=== PATIENT | male | born 1975 | race Caucasian/White ===

== ENCOUNTER 2017-10-28 14:24 | Emergency (ER) | payer BC ==
[~2017-10-28] VITALS: Ht 167.6 cm; Wt 81.6 kg
[~2017-10-28 14:24] MED LIST: ACET500C4 PO; AGM875T PO; AMOX500C2; BISA5TAB8 PO; CYCL10TA9 PO; DAPS100T3 PO; DOCU100T7 PO; DOXY100C2 PO; HYDR-3714 PO; HYDR-3729 PO; KETO10TA PO; LACT1CAP39 PO; LANS30CA PO; LRT10T PO; MAGN800O PO; METR500T PO; NF-ESOM40C PO; SULF1TAB38 PO; TRAM50TA2; VICODIN PO
--- NOTE | 2017-10-28 15:22 | Diagnostic Imaging Report ---
Three views of the left ankle. INDICATION: Fall. FINDINGS: No fracture, dislocation, or radiopaque foreign body is seen. The ankle mortise is normal in configuration. IMPRESSION: Unremarkable exam. Dictated by: Dictated on workstation # [id number]
--- NOTE | 2017-10-28 15:23 | Diagnostic Imaging Report ---
EXAMINATION: Three views of the left foot. INDICATION: Fall. FINDINGS: No fracture or dislocation is seen. No radiopaque foreign body. Osseous alignment appears normal. IMPRESSION: Unremarkable exam. Dictated by: Dictated on workstation # [id number]
--- NOTE | 2017-10-28 15:24 | ED Lower Extremity ---
General Chief Complaint: Lower Extremity Stated Complaint: HURT L LEG OR ANKLE Nursing Triage Note: Pt reports he fell out of the back of his pickup truck, hurting his L foot/ankle. Pt denies any further injuries from fall at this time. Nursing Sepsis Screen: No Definite Risk Source: patient Exam Limitations: no limitations History of Present Illness Time seen by provider: 15:22 Initial Comments To ER with left lateral ankle pain after falling out of the back of his truck landing on the ankle. He is not sure whether he inverted or everted the ankle. Onset: just prior to arrival Severity: moderate Pain/Injury Location: left ankle Method of Injury: fell Modifying Factors: Worse With Movement Allergies and Home Medications Allergies Coded Allergies: fluconazole (Unverified Allergy, Unknown, HIVES, 07/11/14) Home Medications Amoxicillin 500 Mg Capsule, #30 (Reported) Cyclobenzaprine HCl 10 Mg Tablet, 10 MG PO Q8H, #15 Prescribed by: DEONTE MONROY on 04/13/16 1028 Ketorolac Tromethamine 10 Mg Tablet, 10 MG PO Q6H, #20 Prescribed by: DEONTE MONROY on 04/13/16 1028 Tramadol HCl 50 Mg Tablet, #20 (Reported) Constitutional: see HPI EENTM: see HPI Respiratory: no symptoms reported Cardiovascular: no symptoms reported Genitourinary: no symptoms reported Musculoskeletal: see HPI Skin: no symptoms reported Psychiatric/Neurological: No Symptoms Reported Past Kqiufkk-Hzrfcg-Bxtovq Hx Patient Social History Recent Foreign Travel: No Contact w/Someone Who Travel: No Recent Infectious Disease Expo: No Immunizations Up To Date Tetanus Booster (TDap): Less than 5yrs PED Vaccines UTD: No Date of Influenza Vaccine: Oct 16, 2014 Surgeries Surgeries: Abdominal, Bowel Surgery, Gallbladder Reproductive System Hx Reproductive Disorders: No Sexually Transmitted Disease: No HIV/AIDS: No Gastrointestinal Gastrointestinal Disorders: Diverticulosis Blood Transfusions Adverse Reaction to a Blood Tr: No Family Medical History Family Medial History: Arthritis Cataracts Completed stroke Deafness or hearing loss Dementia Gastroenteritis Hypercholesterolemia Hypertension Osteoporosis Respiratory disorder Tuberculosis No Family History of: AIDS Abdominal aortic aneurysm [place]'s disease Alcoholism Alzheimer's disease Aphasia Asthma Cancer of mouth Cardiovascular disease Colon cancer Congenital disease Congenital heart disease Coronary thrombosis Cystic fibrosis Diabetes mellitus Drug abuse Dysphasia Fibrocystic disease of breast Glaucoma Headache disorder Infertility Kidney disease Myocardial infarction Neoplasm Not obtainable due to adoption Parkinson's disease Prostate cancer Psychosocial problem Seizure disorder Severe allergy Thyroid disease Visual disorder Physical Exam Vital Signs Vital Sign - Last 12Hours 10/28/17 14:38 Temp 97.7 Pulse 89 Resp 18 B/P (MAP) 152/79 (103) Pulse Ox 100 O2 Delivery Room Air Capillary Refill : Less Than 3 Seconds General Appearance: WD/WN, no apparent distress HEENT: PERRL/EOMI, normal ENT inspection Neck: non-tender, full range of motion Respiratory: no respiratory distress, no accessory muscle use Hips: bilateral hip non-tender, bilateral hip normal inspection, bilateral hip normal range of motion Legs: bilateral leg non-tender, bilateral leg normal inspection, bilateral leg normal range of motion Knees: bilateral knee non-tender, bilateral knee normal inspection, bilateral knee normal range of motion Ankles: left ankle pain, left ankle soft tissue tenderness, left ankle other ( no swelling or deformity) Feet: bilateral foot non-tender, bilateral foot normal inspection, bilateral foot normal range of motion Neurologic/Psychiatric: alert, normal mood/affect, oriented x 3 Skin: normal color, warm/dry Progress/Results/Core Measures Results/Orders My Orders Orders - TESSIE LAZO APRN Foot, Left, 3 Views (10/28/17 14:46) Ankle, Left, 3 Views (10/28/17 14:46) Vital Signs/I&O Vital Sign - Last 12Hours 10/28/17 14:38 Temp 97.7 Pulse 89 Resp 18 B/P (MAP) 152/79 (103) Pulse Ox 100 O2 Delivery Room Air Blood Pressure Mean: 103 Departure Impression Impression: Primary Impression: Ankle sprain Disposition: 01 HOME, SELF-CARE Condition: Stable Departure-Patient Inst. Decision time for Depature: 15:23 Referrals: DIANDRA CHO MD (PCP/Family) Primary Care Physician Patient Instructions: Ankle Sprain (DC) Add. Discharge Instructions: 1. Elevate the ankle as much as she can for the rest of today. This will help with swelling. Also apply ice pack for about 30 minutes to an hour at a time couple of times a day for the next few days to help with swelling and pain. Tylenol and Motrin for pain. Crutches as needed for pain with walking. When you're able to bear weight without significant pain that he may stop using the crutches. All discharge instructions reviewed with patient and/or family. Voiced understanding. TESSIE LAZO APRN Oct 28, 2017 15:24
[2017-10-28 15:45] VITALS: BP 152/79
--- OUTSIDE RECORDS SUMMARY | 2017-10-29 09:48 | XMS REPORT | Continuity of Care Document ---
Author Author [facility] Organization [facility] Address Unknown Phone Unavailable Allergies Active Description Code Type Severity Reaction Onset Reported/Identified Relationship to Patient Clinical Status Yes fluconazole [id number] Drug Allergy Unknown HIVES 07/11/2014 Medications There is no data. Problems Date Dx Coded Attending Type Code Diagnosis Diagnosed By 07/14/2014 ENOC DECKER MD Ot 574.10 CHOLELITH W CHOLECYS NEC 07/31/2014 ENOC DECKER MD Ot 038.9 SEPTICEMIA NOS 07/31/2014 ENOC DECKER MD Ot 041.04 STREPTOCOCCUS INFECTION NOS, GROUP D (EN 07/31/2014 ENOC DECKER MD Ot 041.82 BACTEROIDES FRAGILIS 07/31/2014 ENOC DECKER MD Ot 276.1 HYPOSMOLALITY 07/31/2014 ENOC DECKER MD Ot 276.8 HYPOPOTASSEMIA 07/31/2014 ENOC DECKER MD Ot 285.9 ANEMIA NOS 07/31/2014 ENOC DECKER MD Ot 305.1 TOBACCO USE DISORDER 07/31/2014 ENOC DECKER MD Ot 560.1 PARALYTIC ILEUS 07/31/2014 ENOC DECKER MD Ot 562.11 DIVERTICULITIS COLON (W/O MENT OF HEMORR 07/31/2014 ENOC DECKER MD Ot 567.22 PERITONEAL ABSCESS 07/31/2014 ENOC DECKER MD Ot 569.5 INTESTINAL ABSCESS 07/31/2014 ENOC DECKER MD Ot 584.9 ACUTE RENAL FAILURE, UNSPECIFIED 07/31/2014 ENOC DECKER MD Ot 729.5 PAIN IN LIMB 07/31/2014 ENOC DECKER MD Ot 782.3 EDEMA 07/31/2014 ENOC DECKER MD Ot 782.4 JAUNDICE NOS 07/31/2014 ENOC DECKER MD Ot 786.09 RESPIRATORY ABNORM NEC 07/31/2014 ENOC DECKER MD Ot 787.7 ABNORMAL FECES 07/31/2014 JERONIMO FRANCO, ENOC Zhang Ot 788.20 RETENTION OF URINE NOS 07/31/2014 JERONIMO FRANCO, ENOC Zhang Ot 995.92 SEVERE SEPSIS 10/23/2014 ENOC DECKER MD Ot 562.10 DIVERTICULOSIS COLON (W/O MENT OF HEMORR 11/16/2014 ENOC DECKER MD Ot 562.10 11/16/2014 ENOC DECKER MD Ot V72.63 11/16/2014 ENOC DECKER MD Ot V74.8 11/23/2014 ENOC DECKER MD Ot 562.11 11/23/2014 ENOC DECKER MD Ot V15.82 11/23/2014 ENOC DECKER MD Ot 562.11 11/23/2014 ENOC DECKER MD Ot V15.82 11/25/2014 ENOC DECKER MD Ot 562.11 DIVERTICULITIS COLON (W/O MENT OF HEMORR 11/25/2014 ENOC DECKER MD Ot 788.20 RETENTION OF URINE NOS 11/25/2014 ENOC DECKER MD Ot V15.82 HISTORY OF TOBACCO USE 12/07/2014 ENOC DECKER MD Ot 562.10 12/07/2014 ENOC DECKER MD Ot V72.63 12/07/2014 ENOC DECKER MD Ot V74.8 08/29/2015 AMBROCIO VANG CHIEF OF ANESTHESIOLOGY Ot M53.82 09/05/2015 AMBROCIO VANG CHIEF OF ANESTHESIOLOGY Ot M53.82 04/13/2016 DEONTE MONROY DO Ot F17.210 NICOTINE DEPENDENCE, CIGARETTES, UNCOMPL 04/13/2016 DEONTE MONROY DO Ot M79.602 PAIN IN LEFT ARM 04/13/2016 DEONTE MONROY DO, Ot S46.812A STRAIN OF MUSC/FASC/TEND AT SHLDR/UP ARM 04/13/2016 DEONTE MONROY DO, Ot X58.XXXA EXPOSURE TO OTHER SPECIFIED FACTORS, INI 04/13/2016 DEONTE MONROY DO, Ot Y92.[address] IN [facility] NON-INSTITUT (PRIVATE 04/13/2016 DEONTE MONROY DO, Ot Y99.8 OTHER EXTERNAL CAUSE STATUS 04/13/2016 MIKEL FRANCO, MOHAN Zhang Ot 574.20 CHOLELITHIASIS NOS 04/13/2016 JERONIMO FRANCO, ENOC Zhang Ot 574.20 CHOLELITHIASIS NOS 04/13/2016 ENOC DECKER MD Ot V72.63 PRE-PROCEDURAL LABORATORY EXAMINATION 04/13/2016 ENOC DECKER MD Ot V74.8 SCREEN-BACTERIAL DIS NEC 04/13/2016 ENOC DECKER MD Ot V72.84 EXAM PRE-OPERATIVE NOS 04/13/2016 ENOC DECKER MD Ot 562.10 DIVERTICULOSIS COLON (W/O MENT OF HEMORR 04/13/2016 ENOC DECKER MD Ot V72.63 PRE-PROCEDURAL LABORATORY EXAMINATION 04/13/2016 ENOC DECKER MD Ot V74.8 SCREEN-BACTERIAL DIS NEC 04/13/2016 AMBROCIO VANG CHIEF OF ANESTHESIOLOGY Ot M53.82 OTHER SPECIFIED DORSOPATHIES, CERVICAL R 04/16/2016 DEONTE MONROY DO Ot F17.210 NICOTINE DEPENDENCE, CIGARETTES, UNCOMPL 04/16/2016 DEONTE MONROY DO Ot M79.602 PAIN IN LEFT ARM 04/16/2016 DEONTE MONROY DO Ot S46.812A STRAIN OF MUSC/FASC/TEND AT SHLDR/UP ARM 04/16/2016 DEONTE MONROY DO Ot X58.XXXA EXPOSURE TO OTHER SPECIFIED FACTORS, INI 04/16/2016 DEOTNE MONROY DO Ot Y92.[address] IN [facility] NON-INSTITUT (PRIVATE 04/16/2016 DEONTE MONROY DO Ot Y99.8 OTHER EXTERNAL CAUSE STATUS 04/17/2016 MIKEL FRANCO, MOHAN Zhang Ot 574.20 CHOLELITHIASIS NOS 04/17/2016 JERONIMO FRANCO, ENOC Zhang Ot 574.20 CHOLELITHIASIS NOS 04/17/2016 ENOC DECKER MD Ot V72.63 PRE-PROCEDURAL LABORATORY EXAMINATION 04/17/2016 ENOC DECKER MD Ot V74.8 SCREEN-BACTERIAL DIS NEC 04/17/2016 ENOC DECKER MD Ot V72.84 EXAM PRE-OPERATIVE NOS 04/17/2016 ENOC DECKER MD Ot 562.10 DIVERTICULOSIS COLON (W/O MENT OF HEMORR 04/17/2016 ENOC DECKER MD Ot V72.63 PRE-PROCEDURAL LABORATORY EXAMINATION 04/17/2016 ENOC DECKER MD Ot V74.8 SCREEN-BACTERIAL DIS NEC 04/17/2016 ALDENSTANLEYAMBROCIO NUÑEZ SONIYA Ot M53.82 OTHER SPECIFIED DORSOPATHIES, CERVICAL R Procedures Code Description Performed By Performed On 96.07 07/18/2014 99.15 07/19/2014 54.91 07/24/2014 17.36 11/22/2014 17.42 11/22/2014 38.93 11/22/2014 Results There is no data. Encounters ACCT No. Visit Date/Time Discharge Status Pt. Type Provider Facility Loc./Unit Complaint [id number] 10/28/2017 14:27:00 10/28/2017 15:45:00 DIS Emergency TESSIE LAZO APRN [facility] ER HURT L LEG OR ANKLE [id number] 04/13/2016 09:31:00 04/13/2016 10:52:00 DIS Emergency DEONTE MONROY DO [facility] ER [id number] 08/20/2015 14:26:00 08/20/2015 23:59:59 CLS Outpatient AMBROCIO VANG APRN [facility] RAD [id number] 11/22/2014 08:55:00 11/25/2014 10:55:00 DIS Inpatient ENOC DECKER MD [facility] SURGICAL [id number] 11/14/2014 07:55:00 11/14/2014 23:59:59 CLS Outpatient ENOC DECKER MD [facility] PREOP [id number] 10/23/2014 12:01:00 10/23/2014 15:00:00 DIS Outpatient ENOC DECKER MD [facility] [id number] 10/18/2014 06:10:00 10/18/2014 23:59:59 CLS Outpatient ENOC DECKER MD [facility] PREOP [id number] 07/16/2014 18:05:00 07/31/2014 15:30:00 DIS Inpatient ENOC DECKER MD [facility] SURGICAL [id number] 07/14/2014 08:28:00 07/14/2014 15:55:00 DIS Outpatient ENOC DECKER MD [facility] [id number] 07/11/2014 11:56:00 07/11/2014 23:59:59 CLS Outpatient ENOC DECKER MD [facility] PREOP [id number] 07/05/2014 06:51:00 07/05/2014 23:59:59 CLS Outpatient MOHAN MORIN MD [facility] RAD
== END 2017-10-28 15:45 | disposition home or self-care (01) ==
LOC: EDUNIT# 14:24 → ER 14:27
DX: S93.402A Sprain of unspecified ligament of left ankle, initial encounter (principal); Z82.49 Family history of ischemic heart disease and other diseases of the circulatory system; W17.89XA Other fall from one level to another, initial encounter
CPT/HCPCS: 73610; 73630; 99283

== ENCOUNTER 2017-12-14 12:32 | Emergency (ER) | payer BC ==
[~2017-12-14] VITALS: Ht 167.6 cm; Wt 86.2 kg
[2017-12-14 13:30] LABS: BASOPHILS % (AUTO) 0 % (0-10); EOSINOPHILS # (AUTO) 0.1 10^3/uL (0.0-0.3); EOSINOPHILS % (AUTO) 1 % (0-10); HEMATOCRIT 45 % (40-54); HEMOGLOBIN 16.2 G/DL (13.3-17.7); LYMPHOCYTES # (AUTO) 1.4 X 10^3 (1.0-4.0); LYMPHOCYTES % (AUTO) 17 % (12-44); MEAN CORPUSCULAR HEMOGLOBIN 33 PG (25-34); MEAN CORPUSCULAR HGB CONC 36 G/DL (32-36); MEAN CORPUSCULAR VOLUME 92 FL (80-99); MEAN PLATELET VOLUME 8.9 FL (7.4-10.4); MONOCYTES # (AUTO) 0.6 X 10^3 (0.0-1.0); MONOCYTES % (AUTO) 7 % (0-12); NEUTROPHILS % (AUTO) 75 % (42-75); PLATELET COUNT 234 10^3/uL (130-400); RED BLOOD COUNT 4.96 10^6/uL (4.35-5.85); RED CELL DISTRIBUTION WIDTH 12.8 % (10.0-14.5)
[2017-12-14 13:48] LABS: INR 0.9 (0.8-1.4); PROTHROMBIN TIME PATIENT 12.3 SEC (12.2-14.7)
[2017-12-14 13:49] LABS: PARTIAL THROMBOPLASTIN TIME 27 SEC (24-35)
[2017-12-14 13:51] LABS: FIBRIN DEGRADATION PRODUCTS < 0.27 UG/ML (0.00-0.49)
[2017-12-14 13:54] LABS: ALANINE AMINOTRANSFERASE 27 U/L (0-55); ALBUMIN 4.1 GM/DL (3.2-4.5); ALKALINE PHOSPHATASE 59 U/L (40-136); BILIRUBIN,TOTAL 0.4 MG/DL (0.1-1.0); BUN/CREATININE RATIO 17; CALCIUM 9.3 MG/DL (8.5-10.1); CARBON DIOXIDE 21 MMOL/L (21-32); CHLORIDE 104 MMOL/L (98-107); CREATININE SERUM 0.83 MG/DL (0.60-1.30); GFR ESTIMATED > 60; GLUCOSE 139 MG/DL (70-105); MAGNESIUM 2.2 MG/DL (1.8-2.4); POTASSIUM 3.7 MMOL/L (3.6-5.0); SODIUM 135 MMOL/L (135-145); TOTAL PROTEIN 6.8 GM/DL (6.4-8.2)
[2017-12-14] MEDS ORDERED: ENOXAPARIN 100 MG/1 ML (LOVENOX) SYR SC ONE (14:15)
--- NOTE | 2017-12-14 14:16 | Diagnostic Imaging Report ---
INDICATION: Left leg pain and swelling. Left leg venous Doppler study performed in routine fashion with color flow Doppler and waveform analysis. The left common femoral vein and SFV and popliteal vein were patent and compressible. The visualized portions of the posterior tibial vein and peroneal vein are patent. The origin of the greater saphenous vein was patent. The rest the greater saphenous vein is not well seen. There is thrombus in the lesser saphenous vein in the calf. IMPRESSION: There is superficial venous thrombus in the lesser saphenous vein in the calf. The deep system does not show evidence of thrombus. Dictated by: Dictated on workstation # [id number]
[2017-12-14] MEDS ORDERED: APIX5TAB PO (14:17)
[2017-12-14] MEDS ORDERED: PANT40TA2 PO (14:17)
--- NOTE | 2017-12-14 14:17 | ED Lower Extremity ---
General Chief Complaint: Lower Extremity Stated Complaint: L LEG SWELLING/PAIN Nursing Triage Note: PT CO OF L LEG SWELLING FROM [facility] HAD SPRAINED ANKLE APPROX 7 WEEKS AGO Nursing Sepsis Screen: No Definite Risk Source: patient History of Present Illness Date Seen by Provider: Dec 14, 2017 Time Seen by Provider: 13:00 Initial Comments C/O LEFT LEG PAIN AND SWELLING SINCE THURSDAY SPRAINED LEFT ANKLE 10/28/18, AFTER FALLING OFF THE TAILGATE OF A [employer] HAS CONTINUED TO HAVE PROBLEMS WITH PAIN AND SWELLING TO ANKLE AND IS TO HAVE MRI THIS WEEK. HAS NOT BEEN REFERRED TO ORTHOPEDICS YET. HAS BEEN SEEN BY ROSEANNE POPE AT DR. CHO'S OFFICE PT STATES ON 12/12/17, HE BEGAN OT HAVE BAD CRAMPING IN LEFT CALF MUSCLE --NOT ASSOCIATED WITH ANY PARTICULAR ACTIVITY TO CAUSE MUSCLE PAIN LATER THAT DAY, HE BEGAN TO HAVE SWELLING OF HIS LEFT LOWER LEG CONTINUES TO HAVE PAIN IN LEFT CALF NO PARESTHESIAS OR MOTOR DEFICITS NO CHEST PAIN, SHORTNESS OF BREATH, PALPITATIONS, DIZZINESS, OR SWEATS. PT IS A IRVIN AND HAS CONTINUED TO BE VERY ACTIVE IN THAT RESPECT, DESPITE PROBLEMS WITH ANKLE PCP: DR. CHO/ ROSEANNE POPE Allergies and Home Medications Allergies Coded Allergies: fluconazole (Unverified Allergy, Unknown, HIVES, 07/11/14) Home Medications Amoxicillin 500 Mg Capsule, #30 (Reported) Apixaban 5 Mg Tablet, 10 MG PO BID, #70 2 TABLETS TWICE DAILY X 7 DAYS, THEN TAKE 1 PILL TWICE A DAY Prescribed by: DEONTE MONROY on 12/14/17 1417 Cyclobenzaprine HCl 10 Mg Tablet, 10 MG PO Q8H, #15 Prescribed by: DEONTE MONROY on 04/13/16 1028 Ketorolac Tromethamine 10 Mg Tablet, 10 MG PO Q6H, #20 Prescribed by: DEONTE MONROY on 04/13/16 1028 Pantoprazole Sodium 40 Mg Tablet.dr, 40 MG PO DAILY, #15 Prescribed by: DEONTE MONROY on 12/14/17 1417 Tramadol HCl 50 Mg Tablet, #20 (Reported) Constitutional: no symptoms reported EENTM: no symptoms reported Respiratory: no symptoms reported Cardiovascular: no symptoms reported Gastrointestinal: no symptoms reported Genitourinary: no symptoms reported Musculoskeletal: see HPI Skin: no symptoms reported Psychiatric/Neurological: No Symptoms Reported Past Fnztxji-Wywvls-Edmnpn Hx Patient Social History Alcohol Use: Denies Use Recreational Drug Use: No Smoking Status: Current Someday Smoker Recent Foreign Travel: No Contact w/Someone Who Travel: No Recent Infectious Disease Expo: No Recent Hopitalizations: No Physical Abuse: No Sexual Abuse: No Immunizations Up To Date Tetanus Booster (TDap): Less than 5yrs PED Vaccines UTD: No Date of Influenza Vaccine: Oct 16, 2014 Surgeries History of Surgeries: Yes (SIGMOID COLON RESECTION 11/22/14 FOR DIVERTICULAR DISEASE; COLONOSCOPIES; ) Surgeries: Abdominal, Bowel Surgery, Gallbladder Respiratory History of Respiratory Disorde: No Cardiovascular History of Cardiac Disorders: No Neurological History of Neurological Disord: No Reproductive System Hx Reproductive Disorders: No Sexually Transmitted Disease: No HIV/AIDS: No Genitourinary History of Genitourinary Disor: No Gastrointestinal History of Gastrointestinal Di: Yes (SIGMOID DIVERTICULITIS WITH PERFORATION AND ABSCESS, LATER HAD SIGMOID COLON RESECTION; ) Gastrointestinal Disorders: Diverticulosis Musculoskeletal History of Musculoskeletal Dis: No Endocrine History of Endocrine Disorders: No HEENT History of HEENT Disorders: No Cancer History of Cancer: No Psychosocial History of Psychiatric Problem: No Suicide Risk Score: 0 Integumentary History of Skin or Integumenta: No Blood Transfusions History of Blood Disorders: No Adverse Reaction to a Blood Tr: No Family Medical History Family Medial History: Arthritis Cataracts Completed stroke Deafness or hearing loss Dementia Gastroenteritis Hypercholesterolemia Hypertension Osteoporosis Respiratory disorder Tuberculosis No Family History of: AIDS Abdominal aortic aneurysm Aiden's disease Alcoholism Alzheimer's disease Aphasia Asthma Cancer of mouth Cardiovascular disease Colon cancer Congenital disease Congenital heart disease Coronary thrombosis Cystic fibrosis Diabetes mellitus Drug abuse Dysphasia Fibrocystic disease of breast Glaucoma Headache disorder Infertility Kidney disease Myocardial infarction Neoplasm Not obtainable due to adoption Parkinson's disease Prostate cancer Psychosocial problem Seizure disorder Severe allergy Thyroid disease Visual disorder Physical Exam Vital Signs Vital Sign - Last 12Hours 12/14/17 12:35 Temp 96.9 Pulse 81 Resp 18 B/P (MAP) 169/104 (125) Pulse Ox 98 Capillary Refill : Less Than 3 Seconds General Appearance: WD/WN, no apparent distress, other (VERY PLEASANT ) Cardiovascular: normal peripheral pulses, regular rate, rhythm Respiratory: normal breath sounds Legs: right leg normal inspection, left leg other (LEFT LOWER LEG WITH MILD SWELLING. + CALF TENDERNESS, NO CORDING. DOES HAVE SOME MILD VARICOSE VEINS ON THE LEFT--NOT PRESENT ON THE RIGHT. NO SKIN DISCOLORATION OR WARMTH) Ankles: right ankle normal inspection, left ankle other (MILD TENDERNESS AND SWELLING TO LEFT LATERAL MALLEOLUS) Feet: bilateral foot normal inspection Neurologic/Tendon: normal sensation, normal motor functions, normal tendon functions Neurologic/Psychiatric: brush washer II-XII nml as tested, no motor/sensory deficits, alert, normal mood/affect, oriented x 3 Skin: normal color, warm/dry Progress/Results/Core Measures Results/Orders Lab Results Laboratory Tests Test 12/14/17 13:20 Range/Units White Blood Count 8.0 4.3-11.0 10^3/uL Red Blood Count 4.96 4.35-5.85 10^6/uL Hemoglobin 16.2 13.3-17.7 G/DL Hematocrit 45 40-54 % Mean Corpuscular Volume 92 80-99 FL Mean Corpuscular Hemoglobin 33 25-34 PG Mean Corpuscular Hemoglobin Concent 36 32-36 G/DL Red Cell Distribution Width 12.8 10.0-14.5 % Platelet Count 234 130-400 10^3/uL Mean Platelet Volume 8.9 7.4-10.4 FL Neutrophils (%) (Auto) 75 42-75 % Lymphocytes (%) (Auto) 17 12-44 % Monocytes (%) (Auto) 7 0-12 % Eosinophils (%) (Auto) 1 0-10 % Basophils (%) (Auto) 0 0-10 % Neutrophils # (Auto) 6.0 1.8-7.8 X 10^3 Lymphocytes # (Auto) 1.4 1.0-4.0 X 10^3 Monocytes # (Auto) 0.6 0.0-1.0 X 10^3 Eosinophils # (Auto) 0.1 0.0-0.3 10^3/uL Basophils # (Auto) 0.0 0.0-0.1 10^3/uL Prothrombin Time 12.3 12.2-14.7 SEC INR Comment 0.9 0.8-1.4 Activated Partial Thromboplast Time 27 24-35 SEC D-Dimer < 0.27 0.00-0.49 UG/ML Sodium Level 135 135-145 MMOL/L Potassium Level 3.7 3.6-5.0 MMOL/L Chloride Level 104 98-107 MMOL/L Carbon Dioxide Level 21 21-32 MMOL/L Anion Gap 10 5-14 MMOL/L Blood Urea Nitrogen 14 7-18 MG/DL Creatinine 0.83 0.60-1.30 MG/DL Estimat Glomerular Filtration Rate > 60 BUN/Creatinine Ratio 17 Glucose Level 139 H 70-105 MG/DL Calcium Level 9.3 8.5-10.1 MG/DL Magnesium Level 2.2 1.8-2.4 MG/DL Total Bilirubin 0.4 0.1-1.0 MG/DL Aspartate Amino Transf (AST/SGOT) 18 5-34 U/L Alanine Aminotransferase (ALT/SGPT) 27 0-55 U/L Alkaline Phosphatase 59 40-136 U/L Total Protein 6.8 6.4-8.2 GM/DL Albumin 4.1 3.2-4.5 GM/DL My Orders Orders - DEONTE MONROY DO Saline Lock/Iv-Start (12/14/17 13:06) Cbc With Automated Diff (12/14/17 13:06) Comprehensive Metabolic Panel (12/14/17 13:06) Fibrin Degradation Products (12/14/17 13:06) Magnesium (12/14/17 13:06) Protime With Inr (12/14/17 13:06) Partial Thromboplastin Time (12/14/17 13:06) Us Venous Lower Ext Lt (12/14/17 13:06) Enoxaparin Injection (Lovenox Injection) (12/14/17 14:15) Vital Signs/I&O Vital Sign - Last 12Hours 12/14/17 12:35 Temp 96.9 Pulse 81 Resp 18 B/P (MAP) 169/104 (125) Pulse Ox 98 Blood Pressure Mean: 125 Diagnostic Imaging Comments VENOUS DOPPLER/ULTRASOUND LEFT LEG--+ SMALL/LESSER SAPHENOUS VEIN THROMBUS, 15 CM IN LENGTH--PER RADIOLOGIST REPORT AT 1418. AND PER TECH REPORT Reviewed: Reviewed by Me Departure Communication (PCP) [id number]--SPOKE WITH DR. CHO. SHE AGREES WITH TREATMENT WITH ANTI-THROMBOTICS, AND RECOMMENDS ELIQUIS. Impression Impression: Primary Impression: Venous thromboembolism (VTE) of lower extremity Disposition: 01 HOME, SELF-CARE Condition: Stable Departure-Patient Inst. Referrals: DIANDRA CHO MD (PCP/Family) Primary Care Physician Patient Instructions: Deep Vein Thrombosis (Blood Clots in the Legs) (DC) Add. Discharge Instructions: ACTIVITIES USUAL NO ASPIRIN, IBUPROFEN ( MOTRIN OR ADVIL ) OR ALEVE ( NAPROXEN ) FOLLOW UP WITH DR. CHO LATER THIS WEEK FOR FURTHER CARE All discharge instructions reviewed with patient and/or family. Voiced understanding. Scripts Pantoprazole Sodium (Protonix) 40 Mg Tablet. 40 MG PO DAILY, #15 TAB Prov: DEONTE MONROY DO 12/14/17 Apixaban (Eliquis) 5 Mg Tablet 10 MG PO BID, #70 TAB 2 TABLETS TWICE DAILY X 7 DAYS, THEN TAKE 1 PILL TWICE A DAY Prov: DEONTE MONROY DO 12/14/17 DEONTE MONROY DO Dec 14, 2017 14:17
[2017-12-14 14:29] VITALS: BP 169/104
== END 2017-12-14 14:29 | disposition home or self-care (01) ==
LOC: EDUNIT# 12:32 → ER 12:35
DX: I82.812 Embolism and thrombosis of superficial veins of left lower extremity (principal); F17.210 Nicotine dependence, cigarettes, uncomplicated; Z87.19 Personal history of other diseases of the digestive system; Z88.2 Allergy status to sulfonamides; Z90.49 Acquired absence of other specified parts of digestive tract
CPT/HCPCS: 36415; 80053; 83735; 85025; 85379; 85610; 85730; 96372

== ENCOUNTER → 2017-12-16 | Outpatient (CLI) | payer BC ==
[~2017-12-16] MED LIST changes: +APIX5TAB PO; +PANT40TA2 PO
--- NOTE | 2017-12-16 11:40 | Diagnostic Imaging Report ---
EXAMINATION: Magnetic resonance imaging of the left ankle without contrast. DATE: 12/16/2017. COMPARISON: Left ankle radiographs 10/28/2017. INDICATION: 42-year-old male, history of injury near [place] 2017. Left ankle pain. TECHNIQUE: Magnetic Resonance Imaging sequences were performed of the ankle without contrast. [< >] FINDINGS: TENDONS AND LIGAMENTS: The Achilles tendon is unremarkable. The posterior flexor tendons - tibialis posterior, flexor digitorum longus, flexor hallucis longus - are intact. The peroneal tendons - peroneus longus and peroneus brevis - are intact. The anterior extensor tendons - tibialis anterior, extensor hallucis longus and extensor digitorum longus tendons - are intact. The anterior and posterior syndesmotic ligaments are intact. The anterior talofibular, posterior talofibular, calcaneofibular and deltoid ligaments are intact. The plantar fascia is intact. JOINTS: The ankle mortise is intact. There is a trace amount of fluid in the posterior subtalar and anterior subtalar joints. BONE: There is a comminuted very mildly displaced fracture of the distal aspect of the calcaneus which includes involvement of the anterior process of the calcaneus, extends towards the sinus tarsi, and is extending along the lateral aspect of the distal calcaneus with fracture extension near the superior aspect of the articulating surface of the calcaneus at the calcaneocuboid articulation. There is a trace amount of fluid within the calcaneocuboid joint. There is associated adjacent marrow edema. No additional fracture is identified. The talar dome is intact. BURSAE AND SOFT TISSUES: The interosseous ligament within the sinus tarsi is intact. The cervical ligament appears mildly increased in signal although is without definite tear. IMPRESSION: 1. Comminuted mildly displaced fracture of the distal calcaneus which includes involvement of the anterior process of the calcaneus, extends in the region of the sinus tarsi, and along the lateral aspect of the distal calcaneus with fracture extension near the superior aspect of the articulating surface of the calcaneus at the calcaneocuboid articulation. 2. Intact syndesmotic ligaments, low lateral ankle ligament complex, and deltoid ligament complex. 3. No additional identified fracture. 4. No identified definite tear of the ligaments within the sinus tarsi. Report was faxed/called to Geri Jiménez by [email or web address] at 11:42 am. Dictated by: Dictated on workstation # [id number]
== END ==
LOC: RAD 09:04
PROVIDERS: ATTEND Nurse Practitioner Family
DX: S92.022D Displaced fracture of anterior process of left calcaneus, subsequent encounter for fracture with routine healing (principal)
CPT/HCPCS: 73721

== ENCOUNTER → 2018-02-02 | Outpatient (CLI) | payer BC ==
--- NOTE | 2018-02-02 13:21 | Diagnostic Imaging Report ---
PROCEDURE: US left lower extremity venous. TECHNIQUE: Multiple real-time grayscale images were obtained over the left lower extremity in various projections. Additional duplex Doppler and color Doppler images were also obtained. INDICATION: Left calf pain and swelling. The patient has history of left lower extremity superficial thrombophlebitis. COMPARISON: Correlation is made with prior ultrasound from 12/14/2017. FINDINGS: The left lower extremity femoral popliteal system demonstrates normal compressibility with normal response to augmentation and Valsalva. No thrombus is seen. There continues to be thrombus within the lesser saphenous vein throughout the length in the left calf, similar to prior exam. No fluid collections are seen. IMPRESSION: No evidence of left lower extremity DVT. There continues to be findings of superficial thrombophlebitis within the lesser saphenous vein, similar to examination from 12/14/2017. Dictated by: Dictated on workstation # [id number]
== END ==
LOC: RAD 11:31
PROVIDERS: ATTEND Family Medicine
DX: I80.02 Phlebitis and thrombophlebitis of superficial vessels of left lower extremity (principal)

== ENCOUNTER 2018-08-13 12:55 | Emergency (ER) | payer BC ==
[~2018-08-13] VITALS: Ht 170.2 cm; Wt 86.2 kg
[~2018-08-13 12:55] MED LIST changes: +CEFU500T63 PO; +ONDA8TAB9 PO; +PRD20T PO
--- OUTSIDE RECORDS SUMMARY | 2018-08-13 13:02 | XMS REPORT | Continuity of Care Document ---
Author Author [facility] Organization [facility] Address Unknown Phone Unavailable Allergies Active Description Code Type Severity Reaction Onset Reported/Identified Relationship to Patient Clinical Status Yes fluconazole [id number] Drug Allergy Unknown HIVES 07/11/2014 Medications There [...] DECKER MD Ot V74.8 08/29/2015 AMBROCIO VANG PET TRAINER Ot M53.82 09/05/2015 AMBROCIO VANG PET TRAINER Ot M53.82 04/13/2016 DEONTE MONROY DO Ot F17.210 NICOTINE DEPENDENCE, CIGARETTES, UNCOMPL 04/13/2016 DEONTE MONROY DO Ot M79.602 PAIN IN LEFT ARM 04/13/2016 DEONTE MONROY DO, Ot S46.812A STRAIN OF MUSC/FASC/TEND AT SHLDR/UP ARM 04/13/2016 DEONTE MONROY DO, Ot X58.XXXA EXPOSURE TO OTHER SPECIFIED FACTORS, INI 04/13/2016 DEONTE MONROY DO, Ot Y92.[address] IN [facility] NON-INSTITUT (PRIVATE 04/13/2016 DEONTE MONROY DO, Ot [...] V74.8 SCREEN-BACTERIAL DIS NEC 04/13/2016 AMBROCIO VANG PET TRAINER Ot M53.82 OTHER SPECIFIED DORSOPATHIES, CERVICAL R 04/16/2016 DEONTE MONROY DO Ot F17.210 NICOTINE DEPENDENCE, CIGARETTES, UNCOMPL 04/16/2016 DEONTE MONROY DO Ot M79.602 PAIN IN LEFT ARM 04/16/2016 DEONTE MONROY DO Ot S46.812A STRAIN OF MUSC/FASC/TEND AT SHLDR/UP ARM 04/16/2016 DEONTE MONROY DO Ot X58.XXXA EXPOSURE TO OTHER SPECIFIED FACTORS, INI 04/16/2016 DEONTE MONROY DO Ot Y92.[address] IN [facility] NON-INSTITUT (PRIVATE 04/16/2016 DEONTE MONROY DO Ot [...] DIVERTICULOSIS COLON (W/O MENT OF HEMORR 04/17/2016 JERONIMO FRANCO, ENOC Zhang Ot V72.63 PRE-PROCEDURAL LABORATORY EXAMINATION 04/17/2016 JERONIMO FRANCO, ENOC Zhang Ot V74.8 SCREEN-BACTERIAL DIS NEC 04/17/2016 AMBROCIO VANG PET TRAINER Ot M53.82 OTHER SPECIFIED DORSOPATHIES, CERVICAL R 10/28/2017 TESSIE LAZO PET TRAINER Ot M25.572 PAIN IN LEFT ANKLE AND JOINTS OF LEFT FO 10/28/2017 TESSIE LAZO APRN Ot S93.402A SPRAIN OF UNSPECIFIED LIGAMENT OF LEFT A 10/28/2017 TESSIE LAZO PET TRAINER Ot W17.89XA OTHER FALL FROM ONE LEVEL TO ANOTHER, IN 10/28/2017 TESSIE LAZO APRN Ot Z82.49 FAMILY HX OF ISCHEM HEART DIS AND OTH DI 12/14/2017 ELIANA WADE DEONTE Stokes Ot F17.210 NICOTINE DEPENDENCE, CIGARETTES, UNCOMPL 12/14/2017 ELIANA WADE DEONTE Stokes Ot I82.812 EMBOLISM AND THROMBOSIS OF SUPERFICIAL V 12/14/2017 ELIANA WADE DEONTE Stokes Ot M79.605 PAIN IN LEFT LEG 12/14/2017 ELIANA WADE DEONTE Stokes Ot Z87.19 PERSONAL HISTORY OF OTHER DISEASES OF TH 12/14/2017 ELIANA WADE DEONTE Stokes Ot Z88.2 ALLERGY STATUS TO SULFONAMIDES STATUS 12/14/2017 ELIANA WADE DEONTE Stokes Ot Z90.49 ACQUIRED ABSENCE OF OTHER SPECIFIED PART 12/16/2017 ELIANA WADE DEONTE Stokes Ot F17.210 NICOTINE DEPENDENCE, CIGARETTES, UNCOMPL 12/16/2017 ELIANA WADE DEONTE Stokes Ot I82.812 EMBOLISM AND THROMBOSIS OF SUPERFICIAL V 12/16/2017 ELIANA DEONTE Stokes Ot M79.605 PAIN IN LEFT LEG 12/16/2017 ELIANA WADE DEONTE Stokes Ot Z87.19 PERSONAL HISTORY OF OTHER DISEASES OF 12/16/2017 ELIANA WADE DEONTE Stokes Ot Z88.2 ALLERGY STATUS TO SULFONAMIDES STATUS 12/16/2017 ELIANA DEONTE Stokes Ot Z90.49 ACQUIRED ABSENCE OF OTHER SPECIFIED PART 12/17/2017 TOSHIA GILLESPIE PET TRAINER Ot S92.022D DISP FX OF ANT PRO OF L CALCANEUS, SUBS 12/30/2017 TOSHIA GILLESPIE APRN Ot S92.022D DISP FX OF ANT PRO OF L CALCANEUS, SUBS 02/03/2018 MARQUIS FRANCO, DIANDRA Rodríguez Ot I80.02 PHLEBITIS AND THOMBOPHLB OF SUPERFIC VES 03/19/2018 TESSIE LAZO APRN Ot F17.210 NICOTINE DEPENDENCE, CIGARETTES, UNCOMPL 03/19/2018 TESSIE LAZO APRN Ot I80.01 PHLEBITIS AND THOMBOPHLB OF SUPERFIC VES 03/19/2018 TESSIE LAZO APRN Ot J45.909 UNSPECIFIED ASTHMA, UNCOMPLICATED 03/19/2018 TESSIE LAZO APRN Ot R06.02 SHORTNESS OF BREATH 03/19/2018 TESSIE LAZO APRN Ot Z79.01 ICU MANAGER (CURRENT) USE OF ANTICOAGULANT 03/19/2018 TESSIE LAZO APRN Ot Z79.52 HALFWAY (CURRENT) USE OF SYSTEMIC STER 03/19/2018 TESSIE LAZO APRN Ot Z82.49 FAMILY HX OF ISCHEM HEART DIS AND OTH DI 03/19/2018 TESSIE LAZO APRN Ot Z87.19 PERSONAL HISTORY OF OTHER DISEASES OF TH 03/19/2018 TESSIE LAZO APRN Ot Z88.8 ALLERGY STATUS TO [facility] DRUG/MEDS/BIOL SUB 03/19/2018 TESSIE LAZO APRN Ot Z90.49 ACQUIRED ABSENCE OF OTHER SPECIFIED PART 03/22/2018 TESSIE LAZO APRN Ot F17.210 NICOTINE DEPENDENCE, CIGARETTES, UNCOMPL 03/22/2018 TESSIE LAZO APRN Ot I80.01 PHLEBITIS AND THOMBOPHLB OF SUPERFIC VES 03/22/2018 TESSIE LAZO APRN Ot J45.909 UNSPECIFIED ASTHMA, UNCOMPLICATED 03/22/2018 TESSIE LAZO APRN Ot R06.02 SHORTNESS OF BREATH 03/22/2018 TESSIE LAZO APRN Ot Z79.01 HALFWAY (CURRENT) USE OF ANTICOAGULANT 03/22/2018 TESSIE LAZO APRN Ot Z79.52 ICU MANAGER (CURRENT) USE OF SYSTEMIC STER 03/22/2018 TESSIE LAZO APRN Ot Z82.49 FAMILY HX OF ISCHEM HEART DIS AND OTH DI 03/22/2018 TESSIE LAZO APRN Ot Z87.19 PERSONAL HISTORY OF OTHER DISEASES OF 03/22/2018 TESSIE LAZO APRN Ot Z88.8 ALLERGY STATUS TO OTH DRUG/MEDS/BIOL SUB 03/22/2018 TESSIE LAZO APRN Ot Z90.49 ACQUIRED ABSENCE OF OTHER SPECIFIED PART Procedures Code Description Performed By Performed On 96.07 07/18/2014 99.15 07/19/2014 54.91 07/24/2014 17.36 11/22/2014 17.42 11/22/2014 38.93 11/22/2014 Results Test Result Range Complete blood count (CBC) with automated white blood cell (WBC) differential - 12/14/17 13:20 Blood leukocytes automated count (number/volume) 8.0 10*3/uL 4.3-11.0 Blood erythrocytes automated count (number/volume) 4.96 10*6/uL 4.35-5.85 Venous blood hemoglobin measurement (mass/volume) 16.2 g/dL 13.3-17.7 Blood hematocrit (volume fraction) 45 % 40-54 Automated erythrocyte mean corpuscular volume 92 [foz_us] 80-99 Automated erythrocyte mean corpuscular hemoglobin (mass per erythrocyte) 33 pg 25-34 Automated erythrocyte mean corpuscular hemoglobin concentration measurement ( mass/volume) 36 g/dL 32-36 Automated erythrocyte distribution width ratio 12.8 % 10.0-14.5 Automated blood platelet count (count/volume) 234 10*3/uL 130-400 Automated blood platelet mean volume measurement 8.9 [foz_us] 7.4-10.4 Automated blood neutrophils/100 leukocytes 75 % 42-75 Automated blood lymphocytes/100 leukocytes 17 % 12-44 Blood monocytes/100 leukocytes 7 % 0-12 Automated blood eosinophils/100 leukocytes 1 % 0-10 Automated blood basophils/100 leukocytes 0 % 0-10 Blood neutrophils automated count (number/volume) 6.0 10*3 1.8-7.8 Blood lymphocytes automated count (number/volume) 1.4 10*3 1.0-4.0 Blood monocytes automated count (number/volume) 0.6 10*3 0.0-1.0 Automated eosinophil count 0.1 10*3/uL 0.0-0.3 Automated blood basophil count (count/volume) 0.0 10*3/uL 0.0-0.1 Comprehensive metabolic panel - 12/14/17 13:20 Serum or plasma sodium measurement (moles/volume) 135 mmol/L 135-145 Serum or plasma potassium measurement (moles/volume) 3.7 mmol/L 3.6-5.0 Serum or plasma chloride measurement (moles/volume) 104 mmol/L 98-107 Carbon dioxide 21 mmol/L 21-32 Serum or plasma anion gap determination (moles/volume) 10 mmol/L 5-14 Serum or plasma urea nitrogen measurement (mass/volume) 14 mg/dL 7-18 Serum or plasma creatinine measurement (mass/volume) 0.83 mg/dL 0.60-1.30 Serum or plasma urea nitrogen/creatinine mass ratio 17 NRG Serum or plasma creatinine measurement with calculation of estimated glomerular filtration rate > NRG Serum or plasma glucose measurement (mass/volume) 139 mg/dL 70-105 Serum or plasma calcium measurement (mass/volume) 9.3 mg/dL 8.5-10.1 Serum or plasma total bilirubin measurement (mass/volume) 0.4 mg/dL 0.1-1.0 Serum or plasma alkaline phosphatase measurement (enzymatic activity/volume) 59 U/L 40-136 Serum or plasma aspartate aminotransferase measurement (enzymatic activity/ volume) 18 U/L 5-34 Serum or plasma alanine aminotransferase measurement (enzymatic activity/volume ) 27 U/L 0-55 Serum or plasma protein measurement (mass/volume) 6.8 g/dL 6.4-8.2 Serum or plasma albumin measurement (mass/volume) 4.1 g/dL 3.2-4.5 Magnesium - 12/14/17 13:20 Magnesium 2.2 mg/dL 1.8-2.4 PT panel in platelet poor plasma by coagulation assay - 12/14/17 13:20 Prothrombin time (PT) in platelet poor plasma by coagulation assay 12.3 s 12.2-14.7 INR in platelet poor plasma or blood by coagulation assay 0.9 0.8-1.4 Activated partial thromboplastin time (aPTT) in platelet poor plasma bycoagulation assay - 12/14/17 13:20 Activated partial thromboplastin time (aPTT) in platelet poor plasma bycoagulation assay 27 s 24-35 Fibrin D-dimer FEU measurement in platelet poor plasma (mass/volume) - 13:20 Fibrin D-dimer FEU measurement in platelet poor plasma (mass/volume) < ug/mL 0.00-0.49 Blood lactic acid measurement (moles/volume) - 03/19/18 21:35 Blood lactic acid measurement (moles/volume) 1.81 mmol/L 0.50-2.00 Complete blood count (CBC) with automated white blood cell (WBC) differential - 03/19/18 21:35 Blood leukocytes automated count (number/volume) 7.0 10*3/uL 4.3-11.0 Blood erythrocytes automated count (number/volume) 5.11 10*6/uL 4.35-5.85 Venous blood hemoglobin measurement (mass/volume) 16.5 g/dL 13.3-17.7 Blood hematocrit (volume fraction) 46 % 40-54 Automated erythrocyte mean corpuscular volume 91 [foz_us] 80-99 Automated erythrocyte mean corpuscular hemoglobin (mass per erythrocyte) 32 pg 25-34 Automated erythrocyte mean corpuscular hemoglobin concentration measurement ( mass/volume) 36 g/dL 32-36 Automated erythrocyte distribution width ratio 12.5 % 10.0-14.5 Automated blood platelet count (count/volume) 213 10*3/uL 130-400 Automated blood platelet mean volume measurement 9.2 [foz_us] 7.4-10.4 Automated blood neutrophils/100 leukocytes 61 % 42-75 Automated blood lymphocytes/100 leukocytes 19 % 12-44 Blood monocytes/100 leukocytes 16 % 0-12 Automated blood eosinophils/100 leukocytes 3 % 0-10 Automated blood basophils/100 leukocytes 1 % 0-10 Blood neutrophils automated count (number/volume) 4.3 10*3 1.8-7.8 Blood lymphocytes automated count (number/volume) 1.4 10*3 1.0-4.0 Blood monocytes automated count (number/volume) 1.1 10*3 0.0-1.0 Automated eosinophil count 0.2 10*3/uL 0.0-0.3 Automated blood basophil count (count/volume) 0.0 10*3/uL 0.0-0.1 Comprehensive metabolic panel - 03/19/18 21:35 Serum or plasma sodium measurement (moles/volume) 133 mmol/L 135-145 Serum or plasma potassium measurement (moles/volume) 3.8 mmol/L 3.6-5.0 Serum or plasma chloride measurement (moles/volume) 103 mmol/L 98-107 Carbon dioxide 20 mmol/L 21-32 Serum or plasma anion gap determination (moles/volume) 10 mmol/L 5-14 Serum or plasma urea nitrogen measurement (mass/volume) 16 mg/dL 7-18 Serum or plasma creatinine measurement (mass/volume) 0.93 mg/dL 0.60-1.30 Serum or plasma urea nitrogen/creatinine mass ratio 17 NRG Serum or plasma creatinine measurement with calculation of estimated glomerular filtration rate > NRG Serum or plasma glucose measurement (mass/volume) 122 mg/dL 70-105 Serum or plasma calcium measurement (mass/volume) 9.1 mg/dL 8.5-10.1 Serum or plasma total bilirubin measurement (mass/volume) 0.5 mg/dL 0.1-1.0 Serum or plasma alkaline phosphatase measurement (enzymatic activity/volume) 67 U/L 40-136 Serum or plasma aspartate aminotransferase measurement (enzymatic activity/ volume) 24 U/L 5-34 Serum or plasma alanine aminotransferase measurement (enzymatic activity/volume ) 35 U/L 0-55 Serum or plasma protein measurement (mass/volume) 6.9 g/dL 6.4-8.2 Serum or plasma albumin measurement (mass/volume) 4.1 g/dL 3.2-4.5 Bacterial blood culture - 03/19/18 21:35 Bacterial blood culture NG NRG Bacterial blood culture - 03/19/18 21:48 Bacterial blood culture NG NRG Encounters ACCT No. Visit Date/Time Discharge Status Pt. Type Provider Facility Loc./Unit Complaint [id number] 03/19/2018 20:54:00 03/19/2018 22:44:00 DIS Emergency TESSIE LAZO PET TRAINER [facility] ER BACTERIAL INFECTION [id number] 02/02/2018 11:31:00 02/02/2018 23:59:59 CLS Outpatient DIANDRA CHO MD [facility] RAD LT SUPERFICIAL BLOOD CLOT [id number] 12/16/2017 09:04:00 12/16/2017 23:59:59 CLS Outpatient TOSHIA GILLESPIE APRN [facility] RAD LEFT ANKLE PAIN, INSTABILITY [id number] 12/14/2017 12:35:00 12/14/2017 14:29:00 DIS Emergency ELIANA DEONTE WADE [facility] ER L LEG SWELLING/PAIN [id number] 10/28/2017 14:27:00 10/28/2017 15:45:00 DIS Emergency TESSIE LAZO PET TRAINER [facility] ER HURT L LEG OR ANKLE [id number] 04/13/2016 09:31:00 04/13/2016 10:52:00 DIS Emergency ELIANA DODEONTE [facility] ER [id number] 08/20/2015 14:26:00 08/20/2015 23:59:59 CLS Outpatient AMBROCIO VANG PET TRAINER [facility] RAD [id number] 11/22/2014 08:55:00 11/25/2014 10:55:00 DIS Inpatient ENOC DECKER MD [facility] SURGICAL [id number] 11/14/2014 07:55:00 11/14/2014 23:59:59 CLS Outpatient ENOC DECKER MD [facility] PREOP [id number] 10/23/2014 12:01:00 10/23/2014 15:00:00 DIS Outpatient ENOC DECKER MD [facility] [id number] 10/18/2014 06:10:00 10/18/2014 23:59:59 CLS Outpatient ENOC DECKER MD [facility] PREOP [id number] 07/16/2014 18:05:00 07/31/2014 15:30:00 DIS Inpatient ENOC DECKER MD [facility] SURGICAL [id number] 07/14/2014 08:28:00 07/14/2014 15:55:00 DIS Outpatient ENOC DECKER MD [facility] [id number] 07/11/2014 11:56:00 07/11/2014 23:59:59 CLS Outpatient ENOC DECKER MD [facility] PREOP [id number] 07/05/2014 06:51:00 07/05/2014 23:59:59 CLS Outpatient MOHAN MORIN MD [facility] RAD [id number] 08/20/2015 15:13:21 ACT Document Registration
[2018-08-13] MEDS ORDERED: PRD20T PO (13:28)
[2018-08-13] MEDS ORDERED: HYDR-3812 PO (13:28)
--- NOTE | 2018-08-13 13:28 | ED Back Pain ---
General Chief Complaint: Back Problems Stated Complaint: BACK PAIN Source of Information: Patient Exam Limitations: No Limitations History of Present Illness Date Seen by Provider: Aug 13, 2018 Time Seen by Provider: 13:24 Initial Comments To ER with pain at the medial border of the right scapula began 3 days ago after he finished cleaning drain out of a green been a shovel. He has some occasional tingling in the right arm. He's had this issue before where he has pain in this location subsequent tingling in the arm and believes he has a pinched nerve. Pain typically goes away on its own but this time has not yet gone away. No direct injury such as fall or trauma. No cough or shortness of breath. Location: Paraspinous Muscles, T-Spine Timing/Duration: 3-4 Days Severity: Moderate Allergies and Home Medications Allergies Coded Allergies: fluconazole (Unverified Allergy, Unknown, HIVES, 07/11/14) Home Medications Apixaban 5 Mg Tablet, 10 MG PO BID 2 TABLETS TWICE DAILY X 7 DAYS, THEN TAKE 1 PILL TWICE A DAY Prescribed by: DEONTE MONROY on 12/14/17 1417 Cefuroxime Axetil 500 Mg Tablet, 500 MG PO BID Prescribed by: TESSIE LAZO on 03/19/182221 Cyclobenzaprine HCl 10 Mg Tablet, 10 MG PO Q8H Prescribed by: DEONTE MONROY on 04/13/16 1028 Ketorolac Tromethamine 10 Mg Tablet, 10 MG PO Q6H Prescribed by: DEONTE MONROY on 04/13/16 1028 Ondansetron 8 Mg Tab.rapdis, 8 MG PO Q6H PRN for NAUSEA/VOMITING-1ST LINE Prescribed by: TESSIE LAZO on 03/19/182221 Pantoprazole Sodium 40 Mg Tablet.dr, 40 MG PO DAILY Prescribed by: DEONTE MONROY on 12/14/17 1417 Prednisone 20 Mg Tab, 40 MG PO DAILY Prescribed by: TESSIE LAZO on 03/19/182221 Patient Home Medication List Home Medication List Reviewed: Yes Review of Systems Constitutional: see HPI EENTM: see HPI Respiratory: no symptoms reported; No dyspnea on exertion, No short of breath Cardiovascular: no symptoms reported Genitourinary: see HPI Musculoskeletal: see HPI, back pain Skin: no symptoms reported Psychiatric/Neurological: No Symptoms Reported Past Tlooypt-Fanwhh-Weqrzv Hx Patient Social History Alcohol Use: Denies Use Recreational Drug Use: No Smoking Status: Never a Smoker Recent Hopitalizations: No Immunizations Up To Date Tetanus Booster (TDap): Less than 5yrs PED Vaccines UTD: No Date of Influenza Vaccine: Oct 16, 2014 Seasonal Allergies Seasonal Allergies: Yes Past Medical History Surgeries: Yes (SIGMOID COLON RESECTION 11/22/14 FOR DIVERTICULAR DISEASE; COLONOSCOPIES; ) Abdominal, Bowel Surgery, Gallbladder Respiratory: No Cardiac: No (BLOOD CLOT LEFT LEG) Neurological: No Reproductive Disorders: No Sexually Transmitted Disease: No HIV/AIDS: No Genitourinary: No Gastrointestinal: Yes Diverticulosis Musculoskeletal: No Endocrine: No HEENT: No Cancer: No Psychosocial: No Integumentary: No Blood Disorders: No Adverse Reaction/Blood Tranf: No Family Medical History Arthritis Cataracts Completed stroke Deafness or hearing loss Dementia Gastroenteritis Hypercholesterolemia Hypertension Osteoporosis Respiratory disorder Tuberculosis No Family History of: AIDS Abdominal aortic aneurysm Upton's disease Alcoholism Alzheimer's disease Aphasia Asthma Cancer of mouth Cardiovascular disease Colon cancer Congenital disease Congenital heart disease Coronary thrombosis Cystic fibrosis Diabetes mellitus Drug abuse Dysphasia Fibrocystic disease of breast Glaucoma Headache disorder Infertility Kidney disease Myocardial infarction Neoplasm Not obtainable due to adoption Parkinson's disease Prostate cancer Psychosocial problem Seizure disorder Severe allergy Thyroid disease Visual disorder Physical Exam Vital Signs Capillary Refill : Height, Weight, BMI Height: 5'8.00" Weight: 194lbs. 4.0oz. 87.117692kr; BMI Method:Stated General Appearance: No Apparent Distress, WD/WN Respiratory: Normal Breath Sounds, No Accessory Muscle Use, No Respiratory Distress Gastrointestinal: Normal Bowel Sounds, Non Tender, Soft Extremity: Normal Capillary Refill, Normal Inspection Neurologic/Psychiatric: Alert, Oriented x3, No Motor/Sensory Deficits Skin: Normal Color, Warm/Dry Progress/Results/Core Measures Results/Orders My Orders Orders - TESSIE LAZO APRN Ketorolac Injection (Toradol Injection) (08/13/18 13:30) Orphenadrine Injection (Norflex Injectio (08/13/18 13:30) Departure Impression Primary Impression: Thoracic back pain Disposition: HOME, SELF-CARE Condition: Stable Departure-Patient Inst. Decision time for Depature: 13:26 Referrals: DIANDRA CHO MD (PCP/Family) Primary Care Physician Patient Instructions: Muscle Strain (DC) Add. Discharge Instructions: 1. Return to ER for any concerns 2. Muscle relaxer and steroids as directed. Return to the emergency room for any concerns. All discharge instructions reviewed with patient and/or family. Voiced understanding. Scripts Hydrocodone/Acetaminophen (Hydrocodone-Acetamin 5-325 mg) 1 Each Tablet 1 EACH PO Q4-6HR PRN for PAIN-MODERATE, #14 TAB Prov: TESSIE LAZO APRN 08/13/18 Prednisone (Prednisone) 20 Mg Tab 40 MG PO DAILY, #8 TAB Prov: TESSIE LAZO APRN 08/13/18 TESSIE LAZO APRN Aug 13, 2018 13:28
[2018-08-13] MEDS ORDERED: ORPHENADRINE 60 MG/2 ML (NORFLEX) AMP IM ONE (13:30)
[2018-08-13] MEDS ORDERED: KETOROLAC 60 MG/2 ML VIAL IM ONE (13:30)
[2018-08-13 13:32] VITALS: BP 133/89
== END 2018-08-13 13:35 | disposition home or self-care (01) ==
LOC: EDUNIT# 12:55 → ER 12:56
DX: M54.6 Pain in thoracic spine (principal); Z88.8 Allergy status to other drugs, medicaments and biological substances; Z79.51 Long term (current) use of inhaled steroids; Z79.52 Long term (current) use of systemic steroids; Z82.49 Family history of ischemic heart disease and other diseases of the circulatory system; Z90.49 Acquired absence of other specified parts of digestive tract
CPT/HCPCS: 99284

== ENCOUNTER 2018-08-16 11:36 | Emergency (ER) | payer BC ==
[~2018-08-16] VITALS: Ht 175.3 cm; Wt 77.1 kg
[~2018-08-16 11:36] MED LIST changes: +HYDR-3812 PO
[2018-08-16] MEDS ORDERED: ORPHENADRINE 60 MG/2 ML (NORFLEX) AMP IM ONE (12:30)
[2018-08-16] MEDS ORDERED: KETOROLAC 60 MG/2 ML VIAL IM ONE (12:30)
[2018-08-16] MEDS ORDERED: TRIAMCINOLONE ACET (KENALOG-40) 40 MG/ML 1 ML VIAL IM ONE (12:30)
[2018-08-16] MEDS ORDERED: HYDROcodone/APAP 7.5 MG/325 MG (LORTAB, LORCET PLUS) TABLET PO ONE (12:45)
--- NOTE | 2018-08-16 12:53 | ED Back Pain ---
General Chief Complaint: Back Problems Stated Complaint: BACK PAIN Nursing Triage Note: AMBULATED TO ROOM 08 WITHOUT DIFFICULTY. COMPLAINS OF CHRONIC UPPER BACK PAIN THAT HAS BECAME WORSE. WAS SEEN HERE RECENTLY ET GIVEN STEROIDS WHICH HE IS OUT OF AND ALSO CLOSE TO BEING OUT OF HYDROCODONE. REQUESTING A CORTISONE SHOT ET STATES HE HAS BEEN GIVEN THEM BEFORE. Nursing Sepsis Screen: No Definite Risk Source of Information: Patient Exam Limitations: No Limitations History of Present Illness Date Seen by Provider: Aug 16, 2018 Time Seen by Provider: 12:20 Initial Comments Patient is a 43-year-old male who presents to the emergency room with complaints of upper right back pain that radiates down his right arm. He reports that he aggravated his back when he was working on a tractor last . He was seen in the emergency room on last Thursday for the same complaint. He was given steroids and hydrocodone and he reports being out of both without relief. He has not made an appointment to follow-up with his primary care provider. Location: Paraspinous Muscles Timing/Duration: 4-5 Days Severity: Mild Pain/Injury Location: Back Radiation: Other (Right arm) Associated Symptoms: denies symptoms Allergies and Home Medications Allergies Coded Allergies: fluconazole (Unverified Allergy, Unknown, HIVES, 07/11/14) Home Medications Cyclobenzaprine HCl 10 Mg Tablet, 10 MG PO Q8H Prescribed by: ANUPAMA MURPHY on 08/16/18 1333 Hydrocodone Bit/Acetaminophen 1 Tab Tab, 1-2 EACH PO Q6H PRN for PAIN-MODERATE Prescribed by: ANUPAMA MURPHY on 08/16/18 1333 Hydrocodone/Acetaminophen 1 Each Tablet, 1 EACH PO Q4-6HR PRN for PAIN-MODERATE Prescribed by: TESSIE LAZO on 08/13/18 1328 Patient Home Medication List Home Medication List Reviewed: Yes Review of Systems Constitutional: see HPI; No chills, No fever Musculoskeletal: see HPI, back pain (Upper back pain), muscle stiffness (Right shoulder muscle stiffness) All Other Systems Reviewed Negative Unless Noted: Yes Past Dstlprz-Dcnjma-Sohodj Hx Past Med/Social Hx: Reviewed Nursing Past Med/Soc Hx Patient Social History Recent Foreign Travel: No Contact w/Someone Who Travel: No Recent Infectious Disease Expo: No Recent Hopitalizations: No Immunizations Up To Date Tetanus Booster (TDap): Less than 5yrs PED Vaccines UTD: No Date of Influenza Vaccine: Oct 16, 2014 Seasonal Allergies Seasonal Allergies: Yes Past Medical History Surgeries: Yes (SIGMOID COLON RESECTION 11/22/14 FOR DIVERTICULAR DISEASE; COLONOSCOPIES; ) Abdominal, Bowel Surgery, Gallbladder Respiratory: No Cardiac: No (BLOOD CLOT LEFT LEG) Neurological: No Reproductive Disorders: No Sexually Transmitted Disease: No HIV/AIDS: No Genitourinary: No Gastrointestinal: Yes Diverticulosis Musculoskeletal: No Endocrine: No HEENT: No Cancer: No Psychosocial: No Integumentary: No Blood Disorders: No Adverse Reaction/Blood Tranf: No Family Medical History Reviewed Nursing Family Hx Arthritis Cataracts Completed stroke Deafness or hearing loss Dementia Gastroenteritis Hypercholesterolemia Hypertension Osteoporosis Respiratory disorder Tuberculosis No Family History of: AIDS Abdominal aortic aneurysm Geneva's disease Alcoholism Alzheimer's disease Aphasia Asthma Cancer of mouth Cardiovascular disease Colon cancer Congenital disease Congenital heart disease Coronary thrombosis Cystic fibrosis Diabetes mellitus Drug abuse Dysphasia Fibrocystic disease of breast Glaucoma Headache disorder Infertility Kidney disease Myocardial infarction Neoplasm Not obtainable due to adoption Parkinson's disease Prostate cancer Psychosocial problem Seizure disorder Severe allergy Thyroid disease Visual disorder Physical Exam Vital Signs Vital Signs - First Documented 08/16/18 12:13 Temp 98.0 Pulse 69 Resp 16 B/P (MAP) 165/110 (128) Pulse Ox 99 O2 Delivery Room Air Capillary Refill : Less Than 3 Seconds Height, Weight, BMI Height: 5'9.00" Weight: 170lbs. 4.0oz. 77.386979co; BMI Method:Estimated General Appearance: No Apparent Distress, WD/WN Neck: Full Range of Motion, Normal Inspection, Non Tender, Supple Cardiovascular: Regular Rate, Rhythm, No Edema, No Gallop, No JVD, No Murmur, Normal Peripheral Pulses Respiratory: Chest Non Tender, Lungs Clear, Normal Breath Sounds, No Accessory Muscle Use, No Respiratory Distress, Accessory Muscle Use Gastrointestinal: Normal Bowel Sounds, No Organomegaly, No Pulsatile Mass, Non Tender, Soft Extremity: Normal Capillary Refill, Normal Inspection, Normal Range of Motion, No Calf Tenderness, No Pedal Edema, Other (Normal distal pulses, muscle tenderness to the right shoulder/scapula area.) Neurologic/Psychiatric: Alert, Oriented x3, Normal Mood/Affect Skin: Normal Color, Warm/Dry Progress/Results/Core Measures Results/Orders My Orders Orders - ANUPAMA MURPHY Ketorolac Injection (Toradol Injection) (08/16/18 12:30) Orphenadrine Injection (Norflex Injectio (08/16/18 12:30) Triamcinolone Acetonide Im (Kenalog-40) (08/16/18 12:30) Hydrocodone/Apap 7.5/325 Tab (Lortab 7. (08/16/18 12:45) Medications Given in ED Vital Signs/I&O 08/16/18 08/16/18 12:13 13:41 Temp 98.0 97.9 Pulse 69 64 Resp 16 12 B/P (MAP) 165/110 (128) 157/102 (120) Pulse Ox 99 98 O2 Delivery Room Air Room Air Blood Pressure Mean: 128 Progress Progress Note : Time: 13:30 Progress Note I have seen and evaluated the patient. His pain is improved significantly at this time. Rates 3/10 from previous 06/18. He agrees with plans of discharge, return precautions were given. Voices no questions or concerns. Departure Impression Primary Impression: Radicular pain in right arm Additional Impression: Thoracic back sprain Disposition: HOME, SELF-CARE Condition: Stable/Unchanged Departure-Patient Inst. Decision time for Depature: 13:31 Referrals: DIANDRA CHO MD (PCP/Family) Primary Care Physician Patient Instructions: Radiculopathy (DC) Add. Discharge Instructions: Take medications as directed. Follow-up with your primary care provider within 1 week for recheck and for possible imaging studies. Return back to the emergency room for any worsening symptoms or concerns as needed. All discharge instructions reviewed with patient and/or family. Voiced understanding. Scripts Cyclobenzaprine HCl (Cyclobenzaprine HCl) 10 Mg Tablet 10 MG PO Q8H, #14 TAB Prov: ANUPAMA MURPHY 08/16/18 Hydrocodone Bit/Acetaminophen (Hydrocodone/Acetaminophen 5/325mg Tablet) 1 Tab Tab 1-2 EACH PO Q6H PRN for PAIN-MODERATE MDD 10, #20 TAB Prov: ANUPAMA MURPHY 08/16/18 ANUPAMA MURPHY Aug 16, 2018 12:53
[2018-08-16] MEDS ORDERED: ACHD5005 PO (13:33)
[2018-08-16] MEDS ORDERED: CYCL10TA9 PO (13:33)
[2018-08-16 13:41] VITALS: BP 157/102
== END 2018-08-16 13:40 | disposition home or self-care (01) ==
LOC: EDUNIT# 11:36 → ER 11:37
DX: S23.3XXA Sprain of ligaments of thoracic spine, initial encounter (principal); M79.601 Pain in right arm; Z88.8 Allergy status to other drugs, medicaments and biological substances; Z90.49 Acquired absence of other specified parts of digestive tract; Z87.19 Personal history of other diseases of the digestive system; Z82.49 Family history of ischemic heart disease and other diseases of the circulatory system; X58.XXXA Exposure to other specified factors, initial encounter
CPT/HCPCS: 99284

== ENCOUNTER → 2019-10-31 | Outpatient (CLI) | payer BC ==
[~2019-10-31] MED LIST changes: +ACHD5005 PO
--- NOTE | 2019-10-31 11:17 | Diagnostic Imaging Report ---
PROCEDURE: MR imaging of the cervical spine without contrast. TECHNIQUE: Multiplanar, multisequence MR imaging of the cervical spine was performed without contrast. INDICATION: Chronic neck pain. COMPARISON: No prior studies are available for comparison. FINDINGS: Alignment is normal apart from minimal retrolisthesis of C5 on C6. Vertebral body marrow signal is normal. No geographic marrow lesion is seen. There is some mild generalized disc desiccation noted compatible with degenerative change. Very mild disc space narrowing is also seen at the C5-C6 level. Cervical cord demonstrates normal homogeneous signal intensity and normal morphology. Craniocervical junction is unremarkable. C2-C3: No central canal or neural foraminal stenosis is identified. C3-C4: No significant central canal or neural foraminal stenosis is identified. C4-C5: No central canal or neural foraminal stenosis is identified. C5-C6: Broad-based disc/osteophyte complex flattens the ventral thecal sac. There is a left posterolateral disc/osteophyte narrowing the left lateral recess and left neural foramen. Right neural foramen is patent. C6-C7: Uncovertebral joint degenerative change does result in moderate narrowing of the right neural foramen. Central canal and left neural foramen are patent. C7-T1: No central canal or neural foraminal stenosis is identified. Paraspinous tissues are unremarkable. IMPRESSION: Mild cervical spondylosis. There is a prominent focal disc/osteophyte at the C5-C6 level left posterolaterally narrowing the left lateral recess and left neural foramen. No central canal stenosis is detected. Dictated by: Dictated on workstation # [id number]
== END ==
LOC: RAD 10:04
PROVIDERS: ATTEND Nurse Practitioner
DX: M47.812 Spondylosis without myelopathy or radiculopathy, cervical region (principal); M54.6 Pain in thoracic spine
CPT/HCPCS: 72141

== ENCOUNTER 2021-05-26 19:58 | Emergency (ER) | payer BC ==
[~2021-05-26] VITALS: Ht 177 cm; Wt 86.0 kg
[~2021-05-26 19:58] MED LIST changes: -HYDR-3812 PO; -TRAM50TA2; +TRM50T
[2021-05-26] MEDS ORDERED: LACTATED RINGERS 1,000 ML IV SCH (20:15)
--- NOTE | 2021-05-26 20:17 | ED General ---
General Chief Complaint: Dizziness/Syncope Stated Complaint: SYNCOPAL EPISODE Source of Information: Patient Exam Limitations: No Limitations History of Present Illness Date Seen by Provider: May 26, 2021 Time Seen by Provider: 20:14 Initial Comments to ER with reports of a syncopal episode. This occurred just prior to arrival about 1 hour ago. He was feeling fine. He was helping to carry on a table which was heavy. He then got very hot and sat down and then he passed out. He was out for about 10 to 15 seconds before awakening. Now he feels tired. He did not fall and hit his head, his caught him. [id number] who was a nurse was on scene and checked his blood pressure and initially it was about 120 and then upon standing it dropped to 80 something systolic. 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 No fevers chills shortness of breath cough palpitations or lightheadedness. He has not eaten anything today. He did have a couple of beers this afternoon. reports a similar episode about 6 years ago Timing/Duration: 1-2 Days Severity: Moderate Allergies and Home Medications Allergies Coded Allergies: fluconazole (Unverified Allergy, Unknown, HIVES, 07/11/14) Home Medications Cyclobenzaprine HCl 10 Mg Tablet, 10 MG PO Q8H Prescribed by: ANUPAMA MURPHY on 08/16/18 1333 Hydrocodone Bit/Acetaminophen 1 Each Tablet, 1 EACH PO Q4-6HR PRN for PAIN- MODERATE Prescribed by: TESSIE LAZO on 08/13/18 1328 Hydrocodone Bit/Acetaminophen 1 Tab Tab, 1-2 EACH PO Q6H PRN for PAIN-MODERATE Prescribed by: ANUPAMA MURPHY on 08/16/18 1333 Patient Home Medication List Home Medication List Reviewed: Yes Review of Systems Review of Systems Constitutional: see HPI EENTM: see HPI Respiratory: no symptoms reported Cardiovascular: no symptoms reported Genitourinary: no symptoms reported Musculoskeletal: no symptoms reported Skin: no symptoms reported Psychiatric/Neurological: No Symptoms Reported Hematologic/Lymphatic: No Symptoms Reported Immunological/Allergic: no symptoms reported Past Mctlvir-Axekfi-Mdwmnv Hx Patient Social History Tobacco Use?: Yes Tobacco type used: Cigarettes Smoking Status: Current Everyday Smoker Use of E-Cig and/or Vaping dev: No Substance use?: No Alcohol Use?: Yes Alcohol type: Beer Pt feels they are or have been: No Immunizations Up To Date Tetanus Booster (TDap): Less than 5yrs PED Vaccines UTD: No Seasonal Allergies Seasonal Allergies: Yes Past Medical History Surgery/Hospitalization HX: COLON RESECTION, DIVERTICULITIS Surgeries: Yes (SIGMOID COLON RESECTION 11/22/14 FOR DIVERTICULAR DISEASE; COLONOSCOPIES; ) Abdominal, Bowel Surgery, Gallbladder Respiratory: No Cardiac: No (BLOOD CLOT LEFT LEG) Neurological: No Reproductive Disorders: No Sexually Transmitted Disease: No HIV/AIDS: No Genitourinary: No Gastrointestinal: Yes Diverticulosis Musculoskeletal: No Endocrine: No HEENT: No Cancer: No Psychosocial: No Integumentary: No Blood Disorders: No Adverse Reaction/Blood Tranf: No Family Medical History Arthritis Cataracts Completed stroke Deafness or hearing loss Dementia Gastroenteritis Hypercholesterolemia Hypertension Osteoporosis Respiratory disorder Tuberculosis No Family History of: AIDS Abdominal aortic aneurysm Aiden's disease Alcoholism Alzheimer's disease Aphasia Asthma Cancer of mouth Cardiovascular disease Colon cancer Congenital disease Congenital heart disease Coronary thrombosis Cystic fibrosis Diabetes mellitus Drug abuse Dysphasia Fibrocystic disease of breast Glaucoma Headache disorder Infertility Kidney disease Myocardial infarction Neoplasm Not obtainable due to adoption Parkinson's disease Prostate cancer Psychosocial problem Seizure disorder Severe allergy Thyroid disease Visual disorder Physical Exam Vital Signs Vital Signs - First Documented 05/26/21 05/26/21 20:05 21:43 Temp 37.0 Pulse 82 Resp 20 B/P (MAP) 153/98 (116) Pulse Ox 97 O2 Delivery Room Air Capillary Refill : Height, Weight, BMI Height: 5'9.00" Weight: 170lbs. 4.0oz. 77.854080sf; BMI Method:Estimated General Appearance: No Apparent Distress, WD/WN Eyes: Bilateral Eye Normal Inspection, Bilateral Eye PERRL, Bilateral Eye EOMI Neck: Full Range of Motion, Normal Inspection Respiratory: Lungs Clear, Normal Breath Sounds, No Accessory Muscle Use, No Respiratory Distress Cardiovascular: Regular Rate, Rhythm, Normal Peripheral Pulses Gastrointestinal: Normal Bowel Sounds, Non Tender, Soft Extremity: Normal Capillary Refill, Normal Inspection Neurologic/Psychiatric: Alert, Oriented x3 Skin: Normal Color, Warm/Dry Progress/Results/Core Measures Suspected Sepsis SIRS Temperature: Pulse: Respiratory Rate: Laboratory Tests 05/26/21 20:21: White Blood Count 9.2 Blood Pressure / Mean: Laboratory Tests 05/26/21 20:21: Creatinine 0.95, Platelet Count 249, Total Bilirubin 0.9 Results/Orders Lab Results Laboratory Tests Test 05/26/21 20:21 05/26/21 20:41 Range/Units White Blood Count 9.2 4.3-11.0 10^3/uL Red Blood Count 5.11 4.30-5.52 10^6/uL Hemoglobin 16.6 13.3-17.7 g/dL Hematocrit 46 40-54 % Mean Corpuscular Volume 91 80-99 fL Mean Corpuscular Hemoglobin 33 25-34 pg Mean Corpuscular Hemoglobin Concent 36 32-36 g/dL Red Cell Distribution Width 12.0 10.0-14.5 % Platelet Count 249 130-400 10^3/uL Mean Platelet Volume 8.6 L 9.0-12.2 fL Immature Granulocyte % (Auto) 0 % Neutrophils (%) (Auto) 77 H 42-75 % Lymphocytes (%) (Auto) 15 12-44 % Monocytes (%) (Auto) 7 0-12 % Eosinophils (%) (Auto) 0 0-10 % Basophils (%) (Auto) 0 0-10 % Neutrophils # (Auto) 7.1 1.8-7.8 10^3/uL Lymphocytes # (Auto) 1.3 1.0-4.0 10^3/uL Monocytes # (Auto) 0.6 0.0-1.0 10^3/uL Eosinophils # (Auto) 0.0 0.0-0.3 10^3/uL Basophils # (Auto) 0.0 0.0-0.1 10^3/uL Immature Granulocyte # (Auto) 0.0 0.0-0.1 10^3/uL Sodium Level 127 L 135-145 MMOL/L Potassium Level 3.7 3.6-5.0 MMOL/L Chloride Level 93 L 98-107 MMOL/L Carbon Dioxide Level 21 21-32 MMOL/L Anion Gap 13 5-14 MMOL/L Blood Urea Nitrogen 11 7-18 MG/DL Creatinine 0.95 0.60-1.30 MG/DL Estimat Glomerular Filtration Rate > 60 BUN/Creatinine Ratio 12 Glucose Level 90 70-105 MG/DL Calcium Level 8.9 8.5-10.1 MG/DL Corrected Calcium 8.7 8.5-10.1 MG/DL Total Bilirubin 0.9 0.1-1.0 MG/DL Aspartate Amino Transf (AST/SGOT) 29 5-34 U/L Alanine Aminotransferase (ALT/SGPT) 39 0-55 U/L Alkaline Phosphatase 72 40-136 U/L Total Protein 6.9 6.4-8.2 GM/DL Albumin 4.2 3.2-4.5 GM/DL Serum Alcohol 47 H <10 MG/DL Urine Color YELLOW Urine Clarity CLEAR Urine pH 6.0 5-9 Urine Specific Yoder 1.025 H 1.016-1.022 Urine Protein NEGATIVE NEGATIVE Urine Glucose (UA) NEGATIVE NEGATIVE Urine Ketones TRACE H NEGATIVE Urine Nitrite NEGATIVE NEGATIVE Urine Bilirubin NEGATIVE NEGATIVE Urine Urobilinogen 0.2 < = 1.0 MG/DL Urine Leukocyte Esterase NEGATIVE NEGATIVE Urine RBC (Auto) 1+ H NEGATIVE Urine RBC NONE /HPF Urine WBC 5-10 H /HPF Urine Squamous Epithelial Cells 0-2 /HPF Urine Renal Epithelial Cells NONE /HPF Urine Crystals NONE /LPF Urine Bacteria NEGATIVE /HPF Urine Casts NONE /LPF Urine Mucus MODERATE H /LPF Urine Culture Indicated NO My Orders Orders - TESSIE LAZO APRN Cbc With Automated Diff (05/26/21 20:05) Comprehensive Metabolic Panel (05/26/21 20:05) Ekg Tracing (05/26/21 20:05) Ed Iv/Invasive Line Start (05/26/21 20:05) Alcohol (05/26/21 20:09) Lactated Ringers (Lr 1000 Ml Iv Solution (05/26/21 20:15) Ua Culture If Indicated (05/26/21 20:14) Chest 1 View, Ap/Pa Only (05/26/21 20:17) Ct Head Wo (05/26/21 20:17) Vital Signs/I&O 05/26/21 05/26/21 20:05 21:43 Temp 37.0 Pulse 82 77 Resp 20 20 B/P (MAP) 153/98 (116) 159/98 Pulse Ox 97 98 O2 Delivery Room Air Capillary Refill : Diagnostic Imaging Diagonstic Imaging: CT Comments NAME: NAVEED HORTON John [facility] REC#: [id number] PT STATUS: REG ER : 1975 PHYSICIAN: TESSIE LAZO APRN ADMIT DATE: 05/26/21/ER Draft Date of Exam:05/26/21 CT HEAD WO PROCEDURE: CT head without contrast. TECHNIQUE: Multiple contiguous axial images were obtained through the brain without the use of intravenous contrast. Auto Exposure Controls were utilized during the CT exam to meet ALARA standards for radiation dose reduction. INDICATION: Syncope. COMPARISON: None. FINDINGS: Ventricles are normal in size, shape and position. There is no midline shift or mass effect. There is no hemorrhage or evidence of acute ischemia. No extra-axial fluid collection or mass is seen. There is no skull fracture. Paranasal sinuses and mastoids are clear. IMPRESSION: Negative CT head. Dictated on workstation # [id number] Dict: 05/26/212036 Trans: 05/26/212043 [id number] [id number] Interpreted by: KIRAN HUGHES Electronically signed by: NAME: NAVEED HORTON [facility] REC#: [id number] PT STATUS: REG ER : 1975 PHYSICIAN: TESSIE LAZO NEPHROLOGY NURSE ADMIT DATE: 05/26/21/ER Draft Date of Exam:05/26/21 CHEST 1 VIEW, AP/PA ONLY INDICATION: Syncope. COMPARISON: 11/22/2014. EXAMINATION: Single view of the chest was obtained. FINDINGS: Clear lungs, bilaterally. The heart is normal. There is no pneumothorax but osseous structures are normal. IMPRESSION: Negative chest. Dictated on workstation # [id number] Dict: 05/26/212038 Trans: 05/26/212042 PJE [id number] Interpreted by: KIRAN HUGHES Electronically signed by: Departure Communication (Admissions) [id number] his EKG that was obtained at 2022 shows sinus rhythm rate of [address] segment changes and no ectopy. Impression Primary Impression: Syncope Qualified Codes: R55 - Syncope and collapse Disposition: HOME, SELF-CARE Condition: Stable Departure-Patient Inst. Decision time for Depature: 21:01 Referrals: DIANDRA CHO MD (PCP/Family) Primary Care Physician Patient Instructions: Syncope (Fainting) (DC) Add. Discharge Instructions: 1. Follow-up with your doctor this week for recheck. Return to ER for any concerns. All discharge instructions reviewed with patient and/or family. Voiced understanding. TESSIE LAZO NEPHROLOGY NURSE May 26, 2021 20:16
[2021-05-26 20:39] LABS: BASOPHILS % (AUTO) 0 % (0-10); EOSINOPHILS % (AUTO) 0 % (0-10); HEMATOCRIT 46 % (40-54); HEMOGLOBIN 16.6 g/dL (13.3-17.7); LYMPHOCYTES # (AUTO) 1.3 10^3/uL (1.0-4.0); LYMPHOCYTES % (AUTO) 15 % (12-44); MEAN CORPUSCULAR HEMOGLOBIN 33 pg (25-34); MEAN CORPUSCULAR HGB CONC 36 g/dL (32-36); MEAN CORPUSCULAR VOLUME 91 fL (80-99); MEAN PLATELET VOLUME 8.6 fL (9.0-12.2); MONOCYTES # (AUTO) 0.6 10^3/uL (0.0-1.0); MONOCYTES % (AUTO) 7 % (0-12); NEUTROPHILS # (AUTO) 7.1 10^3/uL (1.8-7.8); NEUTROPHILS % (AUTO) 77 % (42-75); PLATELET COUNT 249 10^3/uL (130-400); WHITE BLOOD COUNT 9.2 10^3/uL (4.3-11.0)
--- NOTE | 2021-05-26 20:43 | Diagnostic Imaging Report ---
INDICATION: Syncope. COMPARISON: 11/22/2014. EXAMINATION: Single view of the chest was obtained. FINDINGS: Clear lungs, bilaterally. The heart is normal. There is no pneumothorax but osseous structures are normal. IMPRESSION: Negative chest. Dictated by: Dictated on workstation # [id number]
[2021-05-26 20:44] LABS: ALBUMIN 4.2 GM/DL (3.2-4.5); CHLORIDE 93 MMOL/L (98-107); POTASSIUM 3.7 MMOL/L (3.6-5.0); SODIUM 127 MMOL/L (135-145)
--- NOTE | 2021-05-26 20:44 | Diagnostic Imaging Report ---
PROCEDURE: CT head without contrast. TECHNIQUE: Multiple contiguous axial images were obtained through the brain without the use of intravenous contrast. Auto Exposure Controls were utilized during the CT exam to meet ALARA standards for radiation dose reduction. INDICATION: Syncope. COMPARISON: None. FINDINGS: Ventricles are normal in size, shape and position. There is no midline shift or mass effect. There is no hemorrhage or evidence of acute ischemia. No extra-axial fluid collection or mass is seen. There is no skull fracture. Paranasal sinuses and mastoids are clear. IMPRESSION: Negative CT head. Dictated by: Dictated on workstation # [id number]
[2021-05-26 20:45] LABS: CALCIUM 8.9 MG/DL (8.5-10.1)
[2021-05-26 20:46] LABS: GLUCOSE 90 MG/DL (70-105); TOTAL PROTEIN 6.9 GM/DL (6.4-8.2)
[2021-05-26 20:47] LABS: CARBON DIOXIDE 21 MMOL/L (21-32)
[2021-05-26 20:48] LABS: BILIRUBIN,TOTAL 0.9 MG/DL (0.1-1.0)
[2021-05-26 20:50] LABS: ALKALINE PHOSPHATASE 72 U/L (40-136); CREATININE SERUM 0.95 MG/DL (0.60-1.30); GFR ESTIMATED > 60
[2021-05-26 20:51] LABS: BUN/CREATININE RATIO 12
[2021-05-26 20:53] LABS: ALANINE AMINOTRANSFERASE 39 U/L (0-55)
[2021-05-26 21:30] LABS: BILIRUBIN,URINE NEGATIVE (NEGATIVE); CLARITY,URINE CLEAR; COLOR,URINE YELLOW; GLUCOSE, URINE (UA) NEGATIVE (NEGATIVE); KETONES,URINE TRACE (NEGATIVE); LEUKOCYTE ESTERASE ,URINE NEGATIVE (NEGATIVE); NITRITE,URINE NEGATIVE (NEGATIVE); PROTEIN,URINE NEGATIVE (NEGATIVE)
[2021-05-26 21:38] LABS: BACTERIA,URINE NEGATIVE /HPF; SQUAMOUS EPITHELIAL CELL,UR 0-2 /HPF
[2021-05-26 21:43] VITALS: BP 159/98
== END 2021-05-26 21:43 | disposition home or self-care (01) ==
LOC: EDUNIT# 19:58 → ER 20:02
DX: R55 Syncope and collapse (principal); F17.210 Nicotine dependence, cigarettes, uncomplicated
CPT/HCPCS: 36415; 70450; 71045; 80053; 80320; 81000; 85025; 93005

== ENCOUNTER 2022-01-09 14:42 | Emergency (ER) | payer BC ==
[~2022-01-09] VITALS: Ht 177 cm; Wt 89.3 kg
[~2022-01-09 14:42] MED LIST changes: +CYCL10TA25 PO; -CYCL10TA9 PO
--- NOTE | 2022-01-09 16:16 | Diagnostic Imaging Report ---
HISTORY: Left thumb pain, trauma. COMPARISON: None. TECHNIQUE: Frontal view of the left hand including the thumb. Lateral and oblique views of the left thumb. FINDINGS: Alignment appears normal. Joint spaces are preserved. A small cortical irregularity is seen at the dorsoradial aspect of the left thumb distal phalangeal base. This is thought to be chronic, but a small chip fracture is difficult to exclude. There are mild degenerative changes at the basal joints of the thumb. No cortical erosions are seen. IMPRESSION: 1. Mild cortical irregularity at the left thumb distal phalangeal base, which is thought to be chronic, but a small chip fracture is difficult to exclude. Dictated by: Dictated on workstation # [id number]
--- NOTE | 2022-01-09 16:33 | ED Upper Extremity ---
General Chief Complaint: Upper Extremity Stated Complaint: L THUMB INJ / PAIN Nursing Triage Note: PT PRESENTS TO ED WITH COMPLAINTS OF L THUMB INJURY/PAIN AFTER HITTING IT WITH A HAMMER YESTERDAY, History of Present Illness Date Seen by Provider: Jan 09, 2022 Time Seen by Provider: 15:30 Initial Comments 46-year-old male presents for left thumb pain. He reports yesterday at work he was using a hammer when he hit his distal thumb on accident. He denies any previous injuries to this digit. He has been using Tylenol and ibuprofen. No other complaints. Onset: yesterday Severity: moderate Pain/Injury Location: left thumb Method of Injury: direct blow Allergies and Home Medications Allergies Coded Allergies: fluconazole (Unverified Allergy, Unknown, HIVES, 07/11/14) Patient Home Medication List Home Medication List Reviewed: Yes Cyclobenzaprine HCl (Cyclobenzaprine HCl) 10 Mg Tablet, 10 MG PO Q8H Prescribed by: ANUPAMA MURPHY on 08/16/18 1333 Hydrocodone Bit/Acetaminophen (Lortab 5 Mg Tablet) 1 Each Tablet, 1 EACH PO Q4- 6HR PRN for PAIN-MODERATE Prescribed by: TESSIE LAZO on 08/13/18 1328 Hydrocodone Bit/Acetaminophen (Lortab 5 Mg Tablet) 1 Tab Tab, 1-2 EACH PO Q6H PRN for PAIN-MODERATE Prescribed by: ANUPAMA MURPHY on 08/16/18 1333 Review of Systems Constitutional: no symptoms reported, see HPI Musculoskeletal: see HPI, joint pain (Left thumb IP joint) All Other Systems Reviewed Negative Unless Noted: Yes Past Npddsbz-Hdnedg-Lxsild Hx Patient Social History Tobacco Use?: Yes Tobacco type used: Cigarettes Smoking Status: Current Everyday Smoker Substance use?: No Alcohol Use?: Yes Alcohol Frequency: Couple times a week Pt feels they are or have been: No Immunizations Up To Date Tetanus Booster (TDap): Less than 5yrs PED Vaccines UTD: No Seasonal Allergies Seasonal Allergies: Yes Past Medical History Surgery/Hospitalization HX: COLON RESECTION, DIVERTICULITIS Surgeries: Yes (SIGMOID COLON RESECTION 11/22/14 FOR DIVERTICULAR DISEASE; COLONOSCOPIES; ) Abdominal, Bowel Surgery, Gallbladder Respiratory: No Cardiac: No (BLOOD CLOT LEFT LEG) Neurological: No Reproductive Disorders: No Sexually Transmitted Disease: No HIV/AIDS: No Genitourinary: No Gastrointestinal: Yes Diverticulosis Musculoskeletal: No Endocrine: No HEENT: No Cancer: No Psychosocial: No Integumentary: No Blood Disorders: No Adverse Reaction/Blood Tranf: No Family Medical History Reviewed Nursing Family Hx Arthritis Cataracts Completed stroke Deafness or hearing loss Dementia Gastroenteritis Hypercholesterolemia Hypertension Osteoporosis Respiratory disorder Tuberculosis No Family History of: AIDS Abdominal aortic aneurysm Aiden's disease Alcoholism Alzheimer's disease Aphasia Asthma Cancer of mouth Cardiovascular disease Colon cancer Congenital disease Congenital heart disease Coronary thrombosis Cystic fibrosis Diabetes mellitus Drug abuse Dysphasia Fibrocystic disease of breast Glaucoma Headache disorder Infertility Kidney disease Myocardial infarction Neoplasm Not obtainable due to adoption Parkinson's disease Prostate cancer Psychosocial problem Seizure disorder Severe allergy Thyroid disease Visual disorder Physical Exam Vital Signs Vital Signs - First Documented 01/09/22 15:24 Temp 36.5 Pulse 98 Resp 18 B/P (MAP) 151/98 (115) Pulse Ox 98 Capillary Refill : Less Than 3 Seconds Height, Weight, BMI Height: 5'9.00" Weight: 170lbs. 4.0oz. 77.061473ks; 28.00 BMI Method:Estimated General Appearance: WD/WN, no apparent distress Cardiovascular: normal peripheral pulses, regular rate, rhythm Respiratory: chest non-tender, lungs clear, normal breath sounds Hand: Left, nail injury (subungual hematoma), swelling (Left thumb) Neurologic/Tendon: normal sensation, normal motor functions, normal tendon functions Neurologic/Psychiatric: no motor/sensory deficits, alert, normal mood/affect, oriented x 3 Progress/Results/Core Measures Results/Orders My Orders Orders - ARCELIA COE Finger(S) (01/09/22 15:59) Vital Signs/I&O 01/09/22 01/09/22 15:24 17:00 Temp 36.5 Pulse 98 Resp 18 18 B/P (MAP) 151/98 (115) 151/98 Pulse Ox 98 98 Blood Pressure Mean: 115 Progress Progress Note : Time: 15:30 Progress Note patient seen and evaluated. Will obtain x-ray. Ice applied. 1630 small avulsion fracture noted on Distal Phyalynx, proximally. Results discussed with the patient. The left thumbnail was prepped with Betadine, a 22- gauge needle was used to make a small opening, mild amount of blood evacuated. Patient reported less pressure. Sterile dressing applied. Finger splint applied. Discharge instructions and return precautions reviewed. Diagnostic Imaging Diagonstic Imaging: Xray Comments NAME: [facility] REC#: [id number] PT STATUS: REG ER : 1975 PHYSICIAN: ARCELIA COE ADMIT DATE: 01/09/22/ER Draft Date of Exam:01/09/22 FINGER(S) HISTORY: Left thumb pain, trauma. COMPARISON: None. TECHNIQUE: Frontal view of the left hand including the thumb. Lateral and oblique views of the left thumb. FINDINGS: Alignment appears normal. Joint spaces are preserved. A small cortical irregularity is seen at the dorsoradial aspect of the left thumb distal phalangeal base. This is thought to be chronic, but a small chip fracture is difficult to exclude. There are mild degenerative changes at the basal joints of the thumb. No cortical erosions are seen. IMPRESSION: 1. Mild cortical irregularity at the left thumb distal phalangeal base, which is thought to be chronic, but a small chip fracture is difficult to exclude. Dictated on workstation # [id number] Dict: 01/09/22 1610 Trans: 01/09/22 1615 [id number] Interpreted by: MAITE PIZARRO MD Electronically signed by: Reviewed: Reviewed by Me Departure Impression Primary Impression: Fracture of thumb, left, closed Qualified Codes: S62.525A - Nondisplaced fracture of distal phalanx of left thumb, initial encounter for closed fracture Disposition: 01 HOME, SELF-CARE Condition: Improved Departure-Patient Inst. Decision time for Depature: 16:15 Referrals: DIANDRA CHO MD (PCP/Family) Primary Care Physician SUDHIR MAGUIRE MD, MICHAEL P MD Patient Instructions: Finger Fracture (DC) Add. Discharge Instructions: Wear splint, while working, may remove for bathing and to sleep. Follow up with orthopedics. Call for appt. Ice and elevate left thumb. Alternate Tylenol 650 mg and Ibuprofen 600 mg every 4 hours for pain. Return to Emergency Dept for new, urgent health care needs. All discharge instructions reviewed with patient and/or family. Voiced unde rstanding. ARCELIA COE Jan 09, 2022 16:33
[2022-01-09 17:00] VITALS: BP 151/98
== END 2022-01-09 17:00 | disposition home or self-care (01) ==
LOC: EDUNIT# 14:42 → ER 14:43
DX: S62.522A Displaced fracture of distal phalanx of left thumb, initial encounter for closed fracture (principal); F17.210 Nicotine dependence, cigarettes, uncomplicated; W22.8XXA Striking against or struck by other objects, initial encounter
CPT/HCPCS: 29130; 73140